=== PATIENT | female | born 1975 | race Two or more races ===

== ENCOUNTER 2017-04-14 19:24 | Emergency (ER) | payer SELFPAY ==
[2017-04-14 20:08] LABS: URINE HCG POC HCG NEGATIVE (Negative)
[2017-04-14] MEDS: KETOROLAC 60 MG/2 ML INJ. IM ×2 (20:42)
[2017-04-14] MEDS: ONDANSETRON ODT 4 MG TAB.RAPDIS. PO ×2 (20:42)
[2017-04-14] MEDS: CYCLOBENZAPRINE 10 MG TABLET. PO ×2 (20:42)
== END 2017-04-14 21:25 | disposition home or self-care (01) ==
LOC: ER 19:24
DX: M43.6 Torticollis (principal); R19.7 Diarrhea, unspecified; R11.2 Nausea with vomiting, unspecified; R51 Headache; F17.210 Nicotine dependence, cigarettes, uncomplicated; Z90.49 Acquired absence of other specified parts of digestive tract
CPT/HCPCS: 81025; 93005; 96372; 99283; J1885; Q0162

== ENCOUNTER 2017-04-23 22:46 | Emergency (ER) | payer SELFPAY | END 2017-04-23 23:27 | disposition home or self-care (01) | LOC: ER 22:46 | DX: O99.350 Diseases of the nervous system complicating pregnancy, unspecified trimester (principal); G43.709 Chronic migraine without aura, not intractable, without status migrainosus; Z90.49 Acquired absence of other specified parts of digestive tract; Z3A.00 Weeks of gestation of pregnancy not specified | CPT/HCPCS: 99283 ==

== ENCOUNTER 2017-05-15 21:20 | Emergency (ER) | payer SELFPAY ==
[2017-05-15] MEDS: HYDROcodone/APAP 5/325MG 1 TAB TABLET PO (21:59)
== END 2017-05-15 22:12 | disposition home or self-care (01) ==
LOC: ER 22:12
DX: O23.591 Infection of other part of genital tract in pregnancy, first trimester (principal); Z3A.08 8 weeks gestation of pregnancy; Z90.49 Acquired absence of other specified parts of digestive tract
CPT/HCPCS: 99283

== ENCOUNTER 2017-05-22 15:22 | Emergency (ER) | payer SELFPAY ==
[2017-05-22] MEDS: ONDANSETRON PF 4 MG/2 ML VIAL. IV (18:16)
[2017-05-22] MEDS: fentaNYL PF VIAL 100 MCG/2 ML VIAL IV ×2 (18:18→18:47)
[2017-05-22] MEDS: LIDOCAINE 1% PF 30 ML VIAL. INJ (18:22)
== END 2017-05-22 19:40 | disposition home or self-care (01) ==
LOC: ER 15:22
DX: O99.89 Other specified diseases and conditions complicating pregnancy, childbirth and the puerperium (principal); N75.0 Cyst of Bartholin's gland; Z3A.10 10 weeks gestation of pregnancy; Z90.49 Acquired absence of other specified parts of digestive tract
CPT/HCPCS: 56420; 96374; 96375; 99284-25; J2405; J3010

== ENCOUNTER 2017-05-27 00:24 | Emergency (ER) | payer SELFPAY | END 2017-05-27 01:11 | disposition home or self-care (01) | LOC: ER 00:24 | DX: Z48.01 Encounter for change or removal of surgical wound dressing (principal); O21.0 Mild hyperemesis gravidarum; Z3A.11 11 weeks gestation of pregnancy | CPT/HCPCS: 99283 ==

== ENCOUNTER 2017-06-22 01:42 | Emergency (ER) | payer SELFPAY ==
[2017-06-22] MEDS ORDERED: IV NORMAL SALINE 1000ML BAG 1,000 ML IV (02:15)
[2017-06-22] MEDS ORDERED: ONDANSETRON PF 4 MG/2 ML VIAL. IV (02:15)
[2017-06-22 02:29] LABS: BILIRUBIN,URINE NEGATIVE (NEG); CLARITY,URINE CLEAR; COLOR,URINE YELLOW; GLUCOSE,URINE NEGATIVE (NEG); NITRITE,URINE NEGATIVE (NEG); PH,URINE 5.5; PROTEIN,URINE NEGATIVE (NEG-TRACE)
[2017-06-22] MEDS: ONDANSETRON ODT 4 MG TAB.RAPDIS. PO (02:39)
[2017-06-22] MEDS: ACETAMINOPHEN 500 MG TABLET PO (02:39)
[2017-06-22 02:43] LABS: AMORPHOUS SEDIMENT,UR PRESENT /HPF; BACTERIA,URINE FEW /HPF (0-FEW); RBC,URINE 0 /HPF (0-2); SQUAMOUS EPITHELIAL CELL,UR MANY /LPF
[2017-06-22] MEDS: CEPHALEXIN 250 MG CAPSULE. PO (03:26)
== END 2017-06-22 03:30 | disposition home or self-care (01) ==
LOC: ER 01:42
DX: O23.42 Unspecified infection of urinary tract in pregnancy, second trimester (principal); O99.342 Other mental disorders complicating pregnancy, second trimester; F41.9 Anxiety disorder, unspecified; Z3A.15 15 weeks gestation of pregnancy; Z90.49 Acquired absence of other specified parts of digestive tract
CPT/HCPCS: 81001; 99284; Q0162

== ENCOUNTER 2017-06-26 12:30 | Emergency (ER) | payer SELFPAY ==
[2017-06-26 13:23] LABS: BILIRUBIN,URINE NEGATIVE (NEG); CLARITY,URINE CLEAR; COLOR,URINE AMBER; GLUCOSE,URINE NEGATIVE (NEG); NITRITE,URINE NEGATIVE (NEG); PROTEIN,URINE NEGATIVE (NEG-TRACE)
[2017-06-26 13:32] LABS: ADD MAN DIFF? NO
[2017-06-26 13:37] LABS: BASO % 0 % (0-3); EOS # 0.1 x10^3/uL (0.0-0.7); EOS % 0 % (0-3); HEMATOCRIT 39.3 % (36.0-47.0); HEMOGLOBIN 13.7 g/dL (12.0-15.5); LYMPH # 2.7 x10^3/uL (1.0-4.8); LYMPH % 23 % (24-48); MEAN CORPUSCULAR HEMOGLOBIN 30 pg (25-35); MEAN CORPUSCULAR HGB CONC 35 g/dL (31-37); MEAN CORPUSCULAR VOLUME 85 fL (79-100); MONO # 0.4 x10^3/uL (0.0-1.1); MONO % 4 % (0-9); NEUT # 8.4 x10^3uL (1.8-7.7); NEUT % 73 % (31-73); PLATELET COUNT 262 x10^3/uL (140-400); RED BLOOD COUNT 4.64 x10^6/uL (3.50-5.40); RED CELL DISTRIBUTION WIDTH 13.6 % (11.5-14.5); WHITE BLOOD COUNT 11.6 x10^3/uL (4.0-11.0)
[2017-06-26 13:42] LABS: BACTERIA,URINE 0 /HPF (0-FEW); RBC,URINE 0 /HPF (0-2); SQUAMOUS EPITHELIAL CELL,UR MANY /LPF
[2017-06-26 13:51] LABS: ANION GAP 14 (6-14); BLOOD UREA NITROGEN 7 mg/dL (7-20); CARBON DIOXIDE 23 mmol/L (21-32); CHLORIDE 100 mmol/L (98-107); CREATININE 0.6 mg/dL (0.6-1.0); GFR 110.7; GLUCOSE 141 mg/dL (70-99); POTASSIUM 3.6 mmol/L (3.5-5.1); SODIUM 137 mmol/L (136-145)
[2017-06-26 13:56] LABS: ALBUMIN 3.3 g/dL (3.4-5.0); ALK PHOS 61 U/L (46-116); ALT (SGPT) 16 U/L (14-59); AST (SGOT) 12 U/L (15-37); DIRECT BILIRUBIN 0.2 mg/dL (0.0-0.2); LIPASE 96 U/L (73-393); TOTAL BILIRUBIN 0.8 mg/dL (0.2-1.0); TOTAL PROTEIN 8.2 g/dL (6.4-8.2)
== END 2017-06-26 15:15 | disposition home or self-care (01) ==
LOC: ER 12:30
DX: O26.891 Other specified pregnancy related conditions, first trimester (principal); R10.32 Left lower quadrant pain; Z3A.13 13 weeks gestation of pregnancy; Z90.49 Acquired absence of other specified parts of digestive tract
CPT/HCPCS: 36415; 76801; 76817; 80048; 80076; 81001; 83690; 84702; 85025; 86901; 87086; 99285-25

== ENCOUNTER 2017-07-08 12:56 | Emergency (ER) | payer SELFPAY ==
[2017-07-08] MEDS: IPRATRPIUM/ALBUTEROL 0.5/2.5MG 3 ML NEBU. NEB (14:56)
[2017-07-08] MEDS: ACETAMINOPHEN 500 MG TABLET PO (15:13)
[2017-07-08 15:24] LABS: BILIRUBIN,URINE NEGATIVE (NEG); CLARITY,URINE CLOUDY; COLOR,URINE YELLOW; GLUCOSE,URINE NEGATIVE (NEG); NITRITE,URINE NEGATIVE (NEG); PROTEIN,URINE NEGATIVE (NEG-TRACE)
[2017-07-08 15:42] LABS: AMORPHOUS SEDIMENT,UR PRESENT /HPF; BACTERIA,URINE 0 /HPF (0-FEW); RBC,URINE 0 /HPF (0-2); SQUAMOUS EPITHELIAL CELL,UR MOD /LPF; WBC,URINE 0 /HPF (0-4)
== END 2017-07-08 16:06 | disposition home or self-care (01) ==
LOC: ER 12:56
DX: O26.892 Other specified pregnancy related conditions, second trimester (principal); O24.419 Gestational diabetes mellitus in pregnancy, unspecified control; R10.11 Right upper quadrant pain; R09.81 Nasal congestion; R05 Cough; J01.20 Acute ethmoidal sinusitis, unspecified; Z3A.15 15 weeks gestation of pregnancy; Z90.49 Acquired absence of other specified parts of digestive tract
CPT/HCPCS: 76705; 76801; 76817; 81001; 94640; 99285-25; J7620

== ENCOUNTER 2017-07-11 19:03 | Emergency (ER) | payer SELFPAY | END 2017-07-11 20:21 | disposition home or self-care (01) | LOC: ER 19:03 | DX: O26.899 Other specified pregnancy related conditions, unspecified trimester (principal); O24.410 Gestational diabetes mellitus in pregnancy, diet controlled; H66.92 Otitis media, unspecified, left ear; Z90.49 Acquired absence of other specified parts of digestive tract; Z3A.00 Weeks of gestation of pregnancy not specified | CPT/HCPCS: 99283 ==

== ENCOUNTER 2017-11-10 12:50 | Observation (INO) | payer SELFPAY ==
[2017-07-11 19:05] VITALS: BP 135/72
[~2017-11-10 12:50] MED LIST: AMOX1TAB61 PO; AMOX500C PO; CEPH-264 PO; CEPH500T PO; CLIN150C14 PO; CYCL10TA2 PO; DOXY100T PO; HYDR-2758 PO; HYDR-963 PO; HYDR-971 PO; METF10003 PO; NAPR-683 PO; ONDA4TAB10 SL; PHEN37.5 PO; PROM25TA10 PO; SUMA25TA3 PO; VENTOLIN HFA18 GM INH
[2017-11-10 14:05] LABS: BARBITURATES NEG (NEG); BENZODIAZEPINES NEG (NEG); CANNABINOIDS NEG (NEG); COCAINE NEG (NEG); METHADONE NEG (NEG); OPIATES NEG (NEG); PHENCYCLIDINE NEG (NEG)
[2017-11-10 14:06] LABS: BILIRUBIN,URINE MODERATE (NEG); CLARITY,URINE HAZY; COLOR,URINE AMBER
[2017-11-10 14:07] LABS: AMPHETAMINE/METHAMPHETAMINE NEG (NEG); NITRITE,URINE POSITIVE (NEG); PROTEIN,URINE 30 mg/dL (NEG-TRACE)
[2017-11-10 14:10] LABS: AMORPHOUS SEDIMENT,UR PRESENT /HPF; BACTERIA,URINE MANY /HPF (0-FEW); RBC,URINE 0 /HPF (0-2); SQUAMOUS EPITHELIAL CELL,UR MANY /LPF
[2017-11-10] MEDS ORDERED: ACETAMINOPHEN 500 MG TABLET PO ONE (15:30)
== END 2017-11-10 15:30 | disposition home or self-care (01) ==
LOC: 3 SO LND 12:50
PROVIDERS: ADMIT Obstetrics & Gynecology; ATTEND Obstetrics & Gynecology
DX: O26.893 Other specified pregnancy related conditions, third trimester (principal); R10.9 Unspecified abdominal pain; Z3A.34 34 weeks gestation of pregnancy; Z79.899 Other long term (current) drug therapy
CPT/HCPCS: 80307; 81001; 87086; G0378; G0379; G0479

== ENCOUNTER 2017-12-08 18:09 | Observation (INO) | payer SELFPAY ==
[2017-07-11 19:05] VITALS: BP 135/72
[~2017-12-08 18:09] MED LIST changes: -METF10003 PO; +METF10007 PO
[2017-12-08] MEDS ORDERED: IV RINGERS,LACTATED 1000ML 1,000 ML IV SCH (18:40)
[2017-12-08 19:07] LABS: BILIRUBIN,URINE NEGATIVE (NEG); CLARITY,URINE CLEAR; COLOR,URINE YELLOW; NITRITE,URINE NEGATIVE (NEG); PROTEIN,URINE NEGATIVE (NEG-TRACE)
[2017-12-08 19:14] LABS: BACTERIA,URINE MANY /HPF (0-FEW); BARBITURATES NEG (NEG); BENZODIAZEPINES NEG (NEG); CANNABINOIDS NEG (NEG); COCAINE NEG (NEG); METHADONE NEG (NEG); OPIATES NEG (NEG); PHENCYCLIDINE NEG (NEG); RBC,URINE 0 /HPF (0-2); SQUAMOUS EPITHELIAL CELL,UR MANY /LPF
[2017-12-08 19:22] LABS: AMPHETAMINE/METHAMPHETAMINE NEG (NEG)
--- NOTE | 2017-12-08 21:03 | RAD ---
BIOPHYS PROFILE W/O NON STRESS History: Decreased movement Findings: Multiple sonographic images from a biophysical profile are submitted. There was 10/19 scoring for the biophysical profile. Estimated LOGAN is 12.4 cm. There is cephalic presentation of the intrauterine fetus. Foci of hypoechogenicity of the placenta are most likely due to placental lakes. Biometry data are as follows: Biparietal diameter 9.29 cm corresponds with 37 weeks 5 days Head circumference 34.48 cm corresponds with 39 weeks 6 days Abdominal circumference 35.59 cm corresponds with 39 weeks 3 days Femur length 7.43 cm corresponds with 38 weeks 0 days Adjusted ultrasound age is 38 weeks 5 days with estimated delivery date by ultrasound of 12/17/2017. LMP age is 37 weeks 4 days with estimated delivery date of 12/25/2017. Estimated weight 3657 g +/- 541 g. heart rate was 141 bpm. Impression: 1. There is 10/19 scoring for the biophysical profile Electronically signed by: Herman Quick MD (12/08/2017 8:59 PM) [facility]
== END 2017-12-08 21:06 | disposition home or self-care (01) ==
LOC: 3 SO LND 18:09
PROVIDERS: ADMIT Obstetrics & Gynecology; ATTEND Obstetrics & Gynecology
DX: O36.8130 Decreased fetal movements, third trimester, not applicable or unspecified (principal); Z3A.38 38 weeks gestation of pregnancy; Z79.899 Other long term (current) drug therapy
CPT/HCPCS: 76819; 80307; 81001; 87086; G0378; G0379; G0479

== ENCOUNTER 2017-12-31 01:39 | Inpatient (IN) | payer SELFPAY ==
[~2017-12-31] VITALS: Ht 162.6 cm; Wt 114.3 kg
[2017-12-31 01:54] VITALS: BP 143/81
[2017-12-31] MEDS ORDERED: TERBUTALINE 1 MG/ML VIAL. SQ PRN (02:15)
[2017-12-31] MEDS ORDERED: 0.9 % SODIUM CHLORIDE 10 ML DISP.SYRIN. IV PRN ×2 (02:15→12:00)
[2017-12-31] MEDS ORDERED: IV RINGERS,LACTATED 1000ML 1,000 ML IV PRN (02:15)
[2017-12-31] MEDS ORDERED: ONDANSETRON PF 4 MG/2 ML VIAL. IV PRN (02:15)
[2017-12-31] MEDS ORDERED: NALBUPHINE 10 MG/ML AMPUL. IV PRN (02:15)
[2017-12-31] MEDS ORDERED: IBUPROFEN 400 MG TABLET. PO PRN (02:15)
[2017-12-31] MEDS ORDERED: LIDOCAINE 1% PF 30 ML VIAL. INJ PRN (02:15)
[2017-12-31] MEDS ORDERED: OXYTOCIN 30 UNIT/500 ML PREMIX 500 ML IV PRN ×2 (02:15→12:00)
[2017-12-31] MEDS ORDERED: fentaNYL PF VIAL 100 MCG/2 ML VIAL IV PRN (02:15)
[2017-12-31 02:22] LABS: BILIRUBIN,URINE NEGATIVE (NEG); CLARITY,URINE CLEAR; COLOR,URINE YELLOW; NITRITE,URINE NEGATIVE (NEG); PROTEIN,URINE NEGATIVE (NEG-TRACE)
[2017-12-31] MEDS: IV RINGERS,LACTATED 1000ML 1,000 ML IV SCH ×3 (02:24→18:15)
[2017-12-31 02:29] LABS: BARBITURATES NEG (NEG); BENZODIAZEPINES NEG (NEG); CANNABINOIDS NEG (NEG); COCAINE NEG (NEG); METHADONE NEG (NEG); OPIATES NEG (NEG); PHENCYCLIDINE NEG (NEG)
[2017-12-31 02:30] LABS: AMPHETAMINE/METHAMPHETAMINE NEG (NEG)
[2017-12-31] MEDS ORDERED: PENICILLIN G K 5,000,000 UNIT in IV DEXTROSE 5% 100ML 100 ML IV ONE (02:30)
[2017-12-31] MEDS ORDERED: miSOPROStol 200MCG TAB 200 MCG TABLET PR ONE (02:30)
[2017-12-31 02:32] LABS: BACTERIA,URINE MANY /HPF (0-FEW); RBC,URINE 0 /HPF (0-2); SQUAMOUS EPITHELIAL CELL,UR MANY /LPF
[2017-12-31 02:39] LABS: BASO % 0 % (0-3); EOS # 0.1 x10^3/uL (0.0-0.7); EOS % 1 % (0-3); HEMATOCRIT 35.1 % (36.0-47.0); HEMOGLOBIN 12.4 g/dL (12.0-15.5); LYMPH % 23 % (24-48); MEAN CORPUSCULAR HEMOGLOBIN 31 pg (25-35); MEAN CORPUSCULAR HGB CONC 35 g/dL (31-37); MEAN CORPUSCULAR VOLUME 87 fL (79-100); MONO # 0.8 x10^3/uL (0.0-1.1); MONO % 6 % (0-9); NEUT # 8.9 x10^3uL (1.8-7.7); NEUT % 69 % (31-73); PLATELET COUNT 231 x10^3/uL (140-400); RED BLOOD COUNT 4.05 x10^6/uL (3.50-5.40); RED CELL DISTRIBUTION WIDTH 13.3 % (11.5-14.5); WHITE BLOOD COUNT 12.9 x10^3/uL (4.0-11.0)
[2017-12-31] MEDS ORDERED: miSOPROStol 200MCG TAB 200 MCG TABLET PR PRN (05:15)
[2017-12-31] MEDS: PENICILLIN G K 2,500,000 UNIT in IV DEXTROSE 5% 50 ML IV SCH ×2 (06:48→10:24)
[2017-12-31] MEDS ORDERED: OXYTOCIN 30 UNIT/500 ML PREMIX 500 ML IV ONE (08:15)
--- NOTE | 2017-12-31 10:59 | PDOC1 ---
OB - History Hx of Present Care: Limited Care Ultrasounds: Normal mid trimester US Obstetrical Complications: None Medical Complications: None Past Family/Social History * Past Medical, Surgical, Family and Obstetric Histories reviewed from chart. Rubella: Immune RPR/VDRL: Negative GBS Status: Positive HBsAG: Negative OB - Chief Complaint & HPI Date of Admission: Date of Admission: Dec 31, 2017 at 01:39 Chief Complaint/History : 7 Para: 7; twins EGA: 40 Reason for admission: active labor Admission Nurse Assessment Rev: Yes OB - Admission Exam Physical Exam Vitals: VS - Last 72 Hours, by Label Date Time Temp Pulse Resp B/P (MAP) Pulse Ox O2 Delivery O2 Flow Rate FiO2 12/31/17 01:54 98.1 66 20 143/81 (101) Room Air 98.1 HEENT: Normal Heart: Regular Rate Lungs: Clear Abdomen: Gravid, Non tender, Soft Extremities: Edema Reflexes: Normal Cervical Dilatation: 4cm Effacement: 75% Station: -3 Membranes: Intact Heart Rate: Normal Accelerations: Accelerations Present Decelerations: No decelerations Contractions on Admission: 6-10 Minutes Apart Intensity: Moderate Text A: 40 wks IUP GBS positive Active labor P: Admit for labor management. ARNOLD MOORE Jr, MD Dec 31, 2017 10:59
--- NOTE | 2017-12-31 11:57 | PDOC ---
VAGINAL DELIVERY DATE DATE: 12/31/17 TIME: 11:56 : 7 Para: Other (8; twins) EGA: 40 VAGINAL DELIVERY: VTX VACCUM ASSISTED: No PLACENTA: Spontaneous 8/9 SEX: Male WEIGHT Weight [ 4750 gm] Nuchal Cord: No Amniotic Fluid: Thin Meconium PAIN: Natural EPISIOTOMY: No EXTENSION: No EBL 300 ml COMPLICATIONS none CONDITION pt. stable Signs of Intrauterine Infectio: None Shoulder Dystocia: No ARNOLD MOORE Jr, MD Dec 31, 2017 11:57
[2017-12-31] MEDS ORDERED: HYDROCORTISONE 1% TOPICAL OINTMENT 30GM TUBE. TP PRN (12:00)
[2017-12-31] MEDS ORDERED: ZOLPIDEM 5 MG TABLET. PO PRN (12:00)
[2017-12-31] MEDS ORDERED: MMR per PROTOCOL. MC PRN (12:00)
[2017-12-31] MEDS ORDERED: MAG HYDROX/ALUMINUM HYD/SIMETH 30 ML ORAL.SUSP PO PRN (12:00)
[2017-12-31] MEDS ORDERED: diphenhydrAMINE HCL 25 MG CAPSULE PO PRN (12:00)
[2017-12-31] MEDS ORDERED: oxyCODONE/APAP 5/325 1 TAB TABLET PO PRN (12:00)
[2017-12-31] MEDS ORDERED: SIMETHICONE 80 MG TAB.CHEW PO PRN (12:00)
[2017-12-31] MEDS ORDERED: BENZOCAINE 20% TOPICAL AEROSOL SPRAY 57GM CAN. TP PRN (12:00)
[2017-12-31] MEDS ORDERED: MAGNESIUM HYDROXIDE 2,400 MG/30 ML ORAL.SUSP. PO PRN (12:00)
[2017-12-31] MEDS ORDERED: PHENYLEPH/MINERAL OIL/PETROLAT RECTAL OINTMENT 28GM TUBE. RC PRN (12:00)
[2017-12-31 16:00] VITALS: BP 118/60
[2017-12-31] MEDS ORDERED: FERROUS SULFATE 325 MG TABLET. PO SCH (17:00)
[2017-12-31 17:10] VITALS: BP 113/60
[2017-12-31] MEDS: DOCUSATE SODIUM 100 MG CAPSULE. PO PRN (18:23)
[2017-12-31] MEDS: ACETAMINOPHEN 325 MG TABLET. PO PRN (18:23)
[2017-12-31] MEDS ORDERED: DIPHTH,PERTUSS(ACELL),TET TOX 0.5 ML DISP.SYRIN. VAX IM ONE (21:00)
[2017-12-31 23:18] VITALS: BP 108/58
[2018-01-01] MEDS: IV RINGERS,LACTATED 1000ML 1,000 ML IV SCH ×3 (02:15→18:15)
[2018-01-01 04:15] LABS: BASO % 0 % (0-3); EOS # 0.1 x10^3/uL (0.0-0.7); EOS % 1 % (0-3); HEMATOCRIT 35.1 % (36.0-47.0); HEMOGLOBIN 12.2 g/dL (12.0-15.5); LYMPH # 3.5 x10^3/uL (1.0-4.8); LYMPH % 30 % (24-48); MEAN CORPUSCULAR HEMOGLOBIN 30 pg (25-35); MEAN CORPUSCULAR HGB CONC 35 g/dL (31-37); MEAN CORPUSCULAR VOLUME 88 fL (79-100); MONO # 0.8 x10^3/uL (0.0-1.1); MONO % 7 % (0-9); NEUT # 7.2 x10^3uL (1.8-7.7); NEUT % 62 % (31-73); PLATELET COUNT 238 x10^3/uL (140-400); RED CELL DISTRIBUTION WIDTH 13.4 % (11.5-14.5); WHITE BLOOD COUNT 11.7 x10^3/uL (4.0-11.0)
[2018-01-01] MEDS: IBUPROFEN 400 MG TABLET. PO PRN ×2 (06:15→18:42)
[2018-01-01 06:22] VITALS: BP 114/60
[2018-01-01] MEDS: DOCUSATE SODIUM 100 MG CAPSULE. PO PRN (08:02)
[2018-01-01] MEDS: ACETAMINOPHEN 325 MG TABLET. PO PRN (08:02)
--- NOTE | 2018-01-01 11:15 | PDOC ---
OB Progress Note Date of Service 01/01/18 Time of Evaluation 1115 Notes Pt. feeling well. No complaints. Lab Laboratory Tests Test 12/31/17 01:55 12/31/17 02:10 01/01/18 03:30 Urine Collection Type Unknown Urine Color Yellow Urine Clarity Clear Urine pH 6.0 Urine Specific Ullin >=1.030 Urine Protein Negative mg/dL (NEG-TRACE) Urine Glucose (UA) Negative mg/dL (NEG) Urine Ketones (Stick) Negative mg/dL (NEG) Urine Blood Negative (NEG) Urine Nitrite Negative (NEG) Urine Bilirubin Negative (NEG) Urine Urobilinogen Dipstick 1.0 mg/dL (0.2 mg/dL) Urine Leukocyte Esterase Moderate (NEG) Urine RBC 0 /HPF (0-2) Urine WBC 11-20 /HPF (0-4) Urine Squamous Epithelial Cells Many /LPF Urine Bacteria Many /HPF (0-FEW) Urine Mucus Mod /LPF Urine Opiates Screen Neg (NEG) Urine Methadone Screen Neg (NEG) Urine Barbiturates Neg (NEG) Urine Phencyclidine Screen Neg (NEG) Urine Amphetamine/Methamphetamine Neg (NEG) Urine Benzodiazepines Screen Neg (NEG) Urine Cocaine Screen Neg (NEG) Urine Cannabinoids Screen Neg (NEG) Urine Ethyl Alcohol Neg (NEG) White Blood Count 12.9 x10^3/uL (4.0-11.0) 11.7 x10^3/uL (4.0-11.0) Red Blood Count 4.05 x10^6/uL (3.50-5.40) 4.00 x10^6/uL (3.50-5.40) Hemoglobin 12.4 g/dL (12.0-15.5) 12.2 g/dL (12.0-15.5) Hematocrit 35.1 % (36.0-47.0) 35.1 % (36.0-47.0) Mean Corpuscular Volume 87 fL (79-100) 88 fL (79-100) Mean Corpuscular Hemoglobin 31 pg (25-35) 30 pg (25-35) Mean Corpuscular Hemoglobin Concent 35 g/dL (31-37) 35 g/dL (31-37) Red Cell Distribution Width 13.3 % (11.5-14.5) 13.4 % (11.5-14.5) Platelet Count 231 x10^3/uL (140-400) 238 x10^3/uL (140-400) Neutrophils (%) (Auto) 69 % (31-73) 62 % (31-73) Lymphocytes (%) (Auto) 23 % (24-48) 30 % (24-48) Monocytes (%) (Auto) 6 % (0-9) 7 % (0-9) Eosinophils (%) (Auto) 1 % (0-3) 1 % (0-3) Basophils (%) (Auto) 0 % (0-3) 0 % (0-3) Neutrophils # (Auto) 8.9 x10^3uL (1.8-7.7) 7.2 x10^3uL (1.8-7.7) Lymphocytes # (Auto) 3.0 x10^3/uL (1.0-4.8) 3.5 x10^3/uL (1.0-4.8) Monocytes # (Auto) 0.8 x10^3/uL (0.0-1.1) 0.8 x10^3/uL (0.0-1.1) Eosinophils # (Auto) 0.1 x10^3/uL (0.0-0.7) 0.1 x10^3/uL (0.0-0.7) Basophils # (Auto) 0.0 x10^3/uL (0.0-0.2) 0.0 x10^3/uL (0.0-0.2) Glucose Level 122 mg/dL (70-99) Laboratory Tests Test 01/01/18 03:30 White Blood Count 11.7 x10^3/uL (4.0-11.0) Red Blood Count 4.00 x10^6/uL (3.50-5.40) Hemoglobin 12.2 g/dL (12.0-15.5) Hematocrit 35.1 % (36.0-47.0) Mean Corpuscular Volume 88 fL (79-100) Mean Corpuscular Hemoglobin 30 pg (25-35) Mean Corpuscular Hemoglobin Concent 35 g/dL (31-37) Red Cell Distribution Width 13.4 % (11.5-14.5) Platelet Count 238 x10^3/uL (140-400) Neutrophils (%) (Auto) 62 % (31-73) Lymphocytes (%) (Auto) 30 % (24-48) Monocytes (%) (Auto) 7 % (0-9) Eosinophils (%) (Auto) 1 % (0-3) Basophils (%) (Auto) 0 % (0-3) Neutrophils # (Auto) 7.2 x10^3uL (1.8-7.7) Lymphocytes # (Auto) 3.5 x10^3/uL (1.0-4.8) Monocytes # (Auto) 0.8 x10^3/uL (0.0-1.1) Eosinophils # (Auto) 0.1 x10^3/uL (0.0-0.7) Basophils # (Auto) 0.0 x10^3/uL (0.0-0.2) Medications Current Medications Ringer's Solution 1,000 ml @ 125 mls/hr Q8H PRN IV hydration; Start 12/31/17 at 02:15; Status Cancel Sodium Chloride (Normal Saline Flush) 3 ml QSHIFT PRN IV AFTER MEDS AND BLOOD DRAWS; Start 12/31/17 at 02:15 Ringer's Solution 1,000 ml @ 125 mls/hr Q8H IV Last administered on at 08:26; Start 12/31/17 at 02:15 Nalbuphine HCl (Nubain) 10 mg PRN Q1HR PRN IV Severe labor pain; Start at 02:15 Fentanyl Citrate (Fentanyl 2ml Vial) 100 mcg PRN Q30MIN PRN IV Severe pain Last administered on 12/31/17at 11:30; Start 12/31/17 at 02:15 Ondansetron HCl (Zofran) 8 mg PRN Q6HRS PRN IV NAUSEA/VOMITING; Start at 02:15 Terbutaline Sulfate (Brethine) 0.25 mg 1X PRN PRN SQ SEE COMMENTS; Start 12/31 at 02:15; Stop 01/01/18 at 02:14; Status DC Lidocaine HCl (Xylocaine 1% Pf 30ml Vial) 30 ml 1X PRN PRN INJ SEE COMMENTS; Start 12/31/17 at 02:15; Stop 01/02/18 at 02:14 Oxytocin/Sodium Chloride 500 ml @ 0 mls/hr CONT PRN PRN IV Post delivery bleeding; Start 12/31/17 at 02:15 Ibuprofen (Motrin) 800 mg PRN Q6HRS PRN PO PAIN Last administered on at 14:54; Start 12/31/17 at 02:15; Stop 12/31/17 at 18:56; Status DC Penicillin G Potassium [id number] unit/Dextrose 100 ml @ 100 mls/hr 1X ONCE IV Last administered on 12/31/17at 02:25; Start 12/31/17 at 02:30; Stop 12/31/17 at 03:29; Status DC Penicillin G Potassium [id number] unit/Dextrose 50 ml @ 100 mls/hr Q4H IV Last administered on 12/31/17at 10:24; Start 12/31/17 at 06:30; Stop 01/01/18 at 04 :56; Status DC Misoprostol (Cytotec 200mcg Tab) 800 mcg 1X ONCE ME ; Start 12/31/17 at 02:30 ; Stop 12/31/17 at 02:31; Status Cancel Misoprostol (Cytotec 200mcg Tab) 800 mcg 1X PRN PRN ME post delivery bleeding; Start 12/31/17 at 05:15 Oxytocin/Sodium Chloride 500 ml @ 0 mls/hr 1X ONCE IV Last administered on at 08:26; Start 12/31/17 at 08:15; Stop 12/31/17 at 08:16; Status DC Sodium Chloride (Normal Saline Flush) 10 ml QSHIFT PRN IV AFTER MEDS AND BLOOD DRAWS; Start 12/31/17 at 12:00 Oxytocin/Sodium Chloride 500 ml @ 62.5 mls/hr CONT PRN IV SEE I/O RECORD; Start 12/31/17 at 12:00; Stop 12/31/17 at 19:59; Status DC Acetaminophen (Tylenol) 650 mg PRN Q6HRS PRN PO MILD PAIN / TEMP Last administered on 01/01/18at 08:02; Start 12/31/17 at 12:00 Ibuprofen (Motrin) 800 mg PRN Q8HRS PRN PO INFLAMMATION/PAIN PREVENTION Last administered on 01/01/18at 06:15; Start 12/31/17 at 12:00 Docusate Sodium (Colace) 100 mg PRN BID PRN PO CONSTIPATION 1ST CHOICE Last administered on 01/01/18at 08:02; Start 12/31/17 at 12:00 Magnesium Hydroxide (Milk Of Magnesia) 2,400 mg PRN DAILY PRN PO CONSTIPATION 2ND CHOICE; Start 12/31/17 at 12:00 Al Hydroxide/Mg Hydroxide (Mylanta Plus Xs) 30 ml PRN Q4HRS PRN PO HEARTBURN / GAS; Start 12/31/17 at 12:00 Simethicone (Gas-X) 80 mg PRN AFTMEALHC PRN PO GAS / BLOATING; Start 12/31/17 at 12:00 Diphenhydramine HCl (Benadryl) 25 mg PRN Q6HRS PRN PO ITCHING; Start 12/31/17 at 12:00 Benzocaine (Americaine) 1 spray PRN QID PRN TP TOPICAL PAIN Last administered on 12/31/17at 14:55; Start 12/31/17 at 12:00 Phenyleph/Shark Oil/Min Oil/Petrol (Preparation H) 1 camron PRN QID PRN RC RECTAL PAIN; Start 12/31/17 at 12:00 Hydrocortisone (Cortaid) 1 camron PRN QID PRN TP PERINEAL PAIN; Start 12/31/17 at 12:00 Ferrous Sulfate (Feosol) 325 mg BIDWMEALS PO Last administered on 12/31/17at 18 :23; Start 12/31/17 at 17:00; Stop 01/01/18 at 05:02; Status DC Zolpidem Tartrate (Ambien) 5 mg PRN QHS PRN PO INSOMNIA, MAY REPEAT X1; Start 12/31/17 at 12:00 Info (Do NOT chart on this placeholder) 1 ea 1X PRN PRN MC SEE COMMENTS; Start 12/31/17 at 12:00; Status Cancel Info (Do NOT chart on this placeholder) 1 ea 1X PRN PRN MC SEE COMMENTS; Start 12/31/17 at 12:00 Oxycodone/ Acetaminophen (Percocet 5/325) 2 tab PRN Q4HRS PRN PO MODERATE PAIN , SEVERE PAIN; Start 12/31/17 at 12:00 Influenza Virus Vaccine (Afluria Trivalent 7335-1227 Syringe) 0.5 ml ONCE ONCE VAX IM ; Start 12/31/17 at 21:00; Stop 12/31/17 at 21:01; Status DC Diphtheria/ Tetanus/Acell Pertussis (Boostrix) 0.5 ml ONCE ONCE VAX IM ; Start 12/31/17 at 21:00; Stop 12/31/17 at 21:01; Status DC Active Scripts Active Keflex (Cephalexin) 500 Mg Capsule 1 Cap PO BID Augmentin 875-125 Tablet (Amoxicillin/Potassium Clav) 1 Each Tablet 1 Tab PO BID Ventolin Hfa Inhaler (Albuterol Sulfate) 18 Gm Hfa.aer.ad 2 Puff INH Q4HRS Keflex (Cephalexin) 500 Mg Capsule 1 Cap PO QID Zofran Odt (Ondansetron) 4 Mg Tab.rapdis 1 Tab SL Q4HRS PRN [place] 10-325 Tablet (Acetaminophen/Hydrocodone Bitart) 1 Each Tablet 1 Tab PO Q8HRS PRN MDD 6 Augmentin 875-125 Tablet (Amoxicillin/Potassium Clav) 1 Each Tablet 1 Tab PO BID [place] 5-325 Tablet (Acetaminophen/Hydrocodone Bitart) 1 Each Tablet 1 Tab PO Q6- 8HRS PRN Cephalexin 500 Mg Tablet 1 Tab PO QID Promethazine Hcl 25 Mg Tablet 1 Tab PO PRN Q6HRS Zofran Odt (Ondansetron) 4 Mg Tab.rapdis 1 Tab SL Q6HRS PRN Naprosyn (Naproxen) 500 Mg Tablet 500 Mg PO BID Cyclobenzaprine Hcl 10 Mg Tablet 10 Mg PO TID PRN [place] 10-325 Tablet (Acetaminophen/Hydrocodone Bitart) 1 Each Tablet 1 Tab PO Q6HRS PRN Clindamycin Hcl 150 Mg Capsule 450 Mg PO TID Amoxicillin 500 Mg Capsule 1 Cap PO QID Keflex (Cephalexin) 500 Mg Capsule 1 Cap PO BID Imitrex (Sumatriptan Succinate) 25 Mg Tablet 25 Mg PO PRN Q2HR PRN Hydrocodone-Apap 5-325 (Hydrocodone Bit/Acetaminophen) 1 Each Tablet 1 Tab PO PRN Q6HRS PRN Reported Phentermine Hcl 37.5 Mg Tablet 37.5 Mg PO DAILY Metformin Hcl 1,000 Mg Tablet 1,000 Mg PO DAILYWBKFT Exam Abd: soft, non tender, fundus firm Assessment PPD#1 s/p Plan of Care: Continue current Tx, Mgmt ARNOLD MOORE Jr, MD Jan 01, 2018 11:15
[2018-01-01 15:35] VITALS: BP 121/70
[2018-01-01 22:08] VITALS: BP 89/56
[2018-01-02 05:30] VITALS: BP 136/72
[2018-01-02] MEDS: ACETAMINOPHEN 325 MG TABLET. PO PRN (06:01)
[2018-01-02] MEDS: DOCUSATE SODIUM 100 MG CAPSULE. PO PRN (09:50)
[2018-01-02 17:10] VITALS: BP 131/75
--- NOTE | 2018-01-02 17:32 | DISCH ---
DISCHARGE INSTRUCTIONS Condition on Discharge Condition on Discharge: Stable Activity After Discharge Activity Instructions for Disc: Activity as tolerated Lifting Instructions after Dis: No heavy lifting Driving Instructions after Dis: Do not drive today Diet after Discharge Diet after Discharge: Regular Contacting the [facility] after DC Call your doctor for: Concerns you may have Follow-Up Follow up with: Dr. Roberts in 6 wks. ARNOLD ROBERTS Jr, MD Jan 02, 2018 17:32
--- NOTE | 2018-01-02 17:32 | PDOC3 ---
OB DISCHARGE SUMMARY DATE OF ADMISSION: 12/31/17 DATE OF DISCHARGE: 01/02/18 REASON FOR ADMISSION: Onset of labor INTRAPARTUM PROCEDURES: Spontanous Vag Deliv DISCHARGE DIAGNOSIS: Term Delivered DISCHARGE INFORMATION: Activity (ad pat), Diet (regular), Instructions (pelvic rest x 6 wks) HOSPITAL COURSE Term gestation delivered vaginally without complications. ARNOLD MOORE Jr, MD Jan 02, 2018 17:32
[2018-01-02] MEDS ORDERED: NAPR-683 PO (17:34)
== END 2018-01-02 18:10 | disposition home or self-care (01) | DRG 807 ==
LOC: OBSVTOIN 01:39 → 3 SO LND 01:39 → 3 NORTH 17:54
PROVIDERS: ADMIT Obstetrics & Gynecology; ATTEND Obstetrics & Gynecology
PROC: 10E0XZZ Delivery of Products of Conception, External Approach (ICD-10-PCS; principal; 2017-12-31)
PROC: 10907ZC Drainage of Amniotic Fluid, Therapeutic from Products of Conception, Via Natural or Artificial Opening (ICD-10-PCS; 2017-12-31)
DX: O99.824 Streptococcus B carrier state complicating childbirth (principal); Z37.0 Single live birth; O77.0 Labor and delivery complicated by meconium in amniotic fluid; O24.429 Gestational diabetes mellitus in childbirth, unspecified control; Z3A.40 40 weeks gestation of pregnancy
CPT/HCPCS: 36415; 80307; 81001; 82947; 85025; 86850; 86900; 86901; 87086; 90471; 90715; 90756; J2540; J2590; J3010; J7120; G0479; Q2035

== ENCOUNTER 2018-08-22 22:15 | Emergency (ER) | payer SELFPAY ==
[~2018-08-22] VITALS: Ht 162.6 cm; Wt 114.3 kg
[~2018-08-22 22:15] MED LIST changes: -HYDR-2758 PO; +HYDR-2761 PO; +HYDR-3135 PO; +HYDR-3164 PO; -HYDR-963 PO; -HYDR-971 PO
[2018-08-22 22:40] VITALS: BP 142/63
[2018-08-22] MEDS ORDERED: predniSONE 10 MG TABLET PO ONE (23:00)
[2018-08-22] MEDS ORDERED: HYDROcodone/APAP 5/325MG 1 TAB TABLET PO ONE (23:00)
[2018-08-22] MEDS ORDERED: CYCLOBENZAPRINE 10 MG TABLET. PO ONE (23:00)
[2018-08-22] MEDS ORDERED: NAPROXEN 500 MG TABLET PO ONE (23:00)
[2018-08-22] MEDS ORDERED: DICL50TA4 PO (23:29)
[2018-08-22] MEDS ORDERED: METH4TAB2 PO (23:29)
[2018-08-22] MEDS ORDERED: CYCL10TA2 PO (23:29)
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
== END 2018-08-22 23:38 | disposition home or self-care (01) ==
LOC: ER 22:15
DX: M54.41 Lumbago with sciatica, right side (principal); G89.29 Other chronic pain; Z90.89 Acquired absence of other organs; Z90.49 Acquired absence of other specified parts of digestive tract
CPT/HCPCS: 99284; J7512

== ENCOUNTER 2018-10-18 19:16 | Emergency (ER) | payer SELFPAY ==
[~2018-10-18] VITALS: Ht 160 cm; Wt 106.6 kg
[~2018-10-18 19:16] MED LIST changes: +DICL50TA4 PO; +METH4TAB2 PO
[2018-10-18 19:36] VITALS: BP 125/84
[2018-10-18] MEDS ORDERED: ORPHENADRINE CITRATE 60 MG/2 ML VIAL. IM ONE (20:15)
[2018-10-18] MEDS ORDERED: ORPH100T PO (20:22)
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
== END 2018-10-18 20:32 | disposition home or self-care (01) ==
LOC: ER 19:16
DX: M54.41 Lumbago with sciatica, right side (principal); Z90.89 Acquired absence of other organs; Z90.49 Acquired absence of other specified parts of digestive tract
CPT/HCPCS: 81025; 96372; 99283; J2360

== ENCOUNTER 2019-09-18 19:27 | Emergency (ER) | payer SELFPAY ==
[~2019-09-18] VITALS: Ht 165.1 cm; Wt 106.0 kg
[~2019-09-18 19:27] MED LIST changes: +ORPH100T PO
[2019-09-18 20:20] LABS: BILIRUBIN,URINE NEGATIVE (NEG); CLARITY,URINE CLEAR; COLOR,URINE YELLOW; NITRITE,URINE NEGATIVE (NEG); PH,URINE 5.5 (<5.0-8.0); PROTEIN,URINE NEGATIVE (NEG-TRACE)
--- NOTE | 2019-09-18 20:27 | PHYS DOC ---
Past Medical History Past Medical History: Other Additional Past Medical Histor: gestational diabetes Past Surgical History: Appendectomy, Cholecystectomy Smoking Status: Never Smoker Alcohol Use: None Drug Use: None General Adult EDM: Chief Complaint: ABDOMINAL PAIN IN HPI: HPI: Patient is a 44 year old female presenting to the ED with a chief complaint of pelvic pain. Patient states the pain is been present for the last 2 weeks and is present in her left side. Patient states that recently she found out that she was . Patient is a G8, P8 as she has 1 set of twins. Patient states that she has not yet seen an COPIER OPERATOR. Patient denies fever, chills, nausea, vomiting, chest pain, shortness of breath. Review of Systems: Review of Systems: Constitutional: Denies fever or chills. [] Eyes: Denies change in visual acuity. [] HENT: Denies nasal congestion or sore throat. [] Respiratory: Denies cough or shortness of breath. [] Cardiovascular: Denies chest pain or edema. [] GI: Complains of pelvic pain [] : Denies dysuria. [] Neurologic: Denies headache, focal weakness or sensory changes. [] Heart Score: Risk Factors: Risk Factors: DM, Current or recent (<one month) smoker, HTN, HLP, family history of CAD, obesity. Risk Scores: Score 0 - 3: 2.5% MACE over next 6 weeks - Discharge Home Score 4 - 6: 20.3% MACE over next 6 weeks - Admit for Clinical Observation Score 7 - 10: 72.7% MACE over next 6 weeks - Early Invasive Strategies Allergies: Allergies: Allergies Coded Allergies Type Severity Reaction Last Updated Verified No Known Drug Allergies 02/09/14 No Physical Exam: PE: Constitutional: Well developed, well nourished, no acute distress, non-toxic appearance. [] HENT: Normocephalic, atraumatic Eyes: EOMI Neck: Normal range of motion, Supple Cardiovascular:Heart rate regular rhythm Lungs & Thorax: Bilateral breath sounds clear to auscultation [] Abdomen: Left pelvic tenderness Extremities: No tenderness, ROM intact Neurologic: Alert and oriented X 3 Current Patient Data: Vital Signs: Vital Signs Date Time Temp Pulse Resp B/P (MAP) Pulse Ox O2 Delivery O2 Flow Rate FiO2 09/18/19 20:08 98.5 60 17 117/57 (77) 100 Room Air 98.5 EKG: EKG: [] Radiology/Procedures: Radiology/Procedures: [] Impression: US PELVIS Findings: Multiple transvaginal sonographic images of the pelvis are submitted. Uterus measured 4.3 x 9.7 x 4.5 cm. There is a hypoechoic fluid collection emanating from the uterus adjacent to scar from section on the order of 1 x 0.5 x 0.8 cm, not associated with internal vascularity. Endometrium measured 0.7 cm. Right ovary measured 3.4 x 2 x 1.7 cm with normal low resistance vascularity. Left ovary measured 4 x 3.2 x 3 cm with normal low resistance vascularity. There is leak anechoic lesion of the left ovary about 3 x 2.5 x 2.2 cm. There is no significant free fluid. Impression: 1. There is a small nonspecific fluid collection adjacent to section scar about 1 cm. Endometrium is not significantly thickened. 2. There is simple left ovarian cyst. Course & Med Decision Making: Course & Med Decision Making Pertinent Labs and Imaging studies reviewed. (See chart for details) [Ordered labs, UA, urine , beta hCG, ultrasound of the pelvis Labs are within normal limits. Urine is positive. UA does not show UTI. Ultrasound shows single IUP of 10 weeks. Heart rate is 171. There is flow to the left ovary. Patient is given pain control in the ER. Patient to follow-up with COPIER OPERATOR IN 1-2 DAYS.. Discussed results and plan of care with patient. Patient is instructed to follow up with PCP in one to 2 days. Appropriate discharge instructions given to patient to return to the ED or to [facility] immediate medical evaluation. Patient is instructed to return to the ED if symptoms worsen or if any concerns.] Dragon Disclaimer: Dragon Disclaimer: This electronic medical record was generated, in whole or in part, using a voice recognition dictation system. Departure Departure Impression: Primary Impression: Pelvic pain affecting Additional Impression: Disposition: HOME, SELF-CARE Condition: STABLE Referrals: NO PCP (PCP) MORAIMA VITALE MD please call for appointment Patient Instructions: Abdominal Pain During Additional Instructions: Discussed results and plan of care with patient. Patient is instructed to follow up with PCP in one to 2 days. Appropriate discharge instructions given to patient to return to the ED or to seek immediate medical evaluation. Patient is instructed to return to the ED if symptoms worsen or if any concerns. Justicifation of Admission Dx: Justifications for Admission: Justification of Admission Dx: CATARINO Ohara DO Sep 18, 2019 20:27
[2019-09-18 20:29] LABS: BACTERIA,URINE FEW /HPF (0-FEW); SQUAMOUS EPITHELIAL CELL,UR FEW /LPF
[2019-09-18 20:59] LABS: BASO # 0.1 x10^3/uL (0.0-0.2); BASO % 1 % (0-3); EOS # 0.2 x10^3/uL (0.0-0.7); EOS % 1 % (0-3); HEMATOCRIT 37.1 % (36.0-47.0); HEMOGLOBIN 12.8 g/dL (12.0-15.5); LYMPH # 3.2 x10^3/uL (1.0-4.8); LYMPH % 27 % (24-48); MEAN CORPUSCULAR HEMOGLOBIN 30 pg (25-35); MEAN CORPUSCULAR HGB CONC 34 g/dL (31-37); MEAN CORPUSCULAR VOLUME 86 fL (79-100); MONO # 0.7 x10^3/uL (0.0-1.1); MONO % 6 % (0-9); NEUT # 7.9 x10^3/uL (1.8-7.7); NEUT % 66 % (31-73); PLATELET COUNT 264 x10^3/uL (140-400); RED BLOOD COUNT 4.33 x10^6/uL (3.50-5.40); RED CELL DISTRIBUTION WIDTH 13.4 % (11.5-14.5)
[2019-09-18 21:11] LABS: CALCIUM 8.8 mg/dL (8.5-10.1); CREATININE 0.7 mg/dL (0.6-1.0); GFR 91.8; POTASSIUM 3.7 mmol/L (3.5-5.1)
[2019-09-18 21:17] LABS: ALBUMIN 3.1 g/dL (3.4-5.0); ALBUMIN/GLOBULIN RATIO 0.7 (1.0-1.7); TOTAL BILIRUBIN 0.3 mg/dL (0.2-1.0); TOTAL PROTEIN 7.5 g/dL (6.4-8.2)
[2019-09-18 21:18] LABS: U PREG PATIENT POSITIVE (NEG)
[2019-09-18 21:20] LABS: PROTHROMBIN TIME PATIENT 12.6 SEC (11.7-14.0)
--- NOTE | 2019-09-18 22:41 | RAD ---
OB TRANSVAG History: Pelvic pain Comparison: None. Findings: Multiple transabdominal sonographic images of the pelvis are submitted. No abnormality is demonstrated in the area of pain in the left lower quadrant. Transvaginal ultrasound: Multiple transvaginal sonographic images of the pelvis are submitted. Uterus measured 13 x 7.6 cm. There is a single gestational sac with identifiable yolk sac and pole. Amniotic fluid volume is within normal limits. Gestational sac morphology is within normal limits. There is demonstrable cardiac activity 171 bpm. [place]-rump length measurement of 3.35 cm corresponds with 10 weeks 2 days. Adjusted ultrasound age is 10 weeks 2 days with estimated delivery date of 04/13/2020. LMP age 13 weeks 3 days with estimated delivery date of 03/22/2020. Left ovary measured 1.8 x 2.5 x 1.9 cm with normal low resistance vascularity. Right ovary could not be visualized. No free fluid is demonstrated. Impression: 1. There is a single viable intrauterine , adjusted ultrasound age 10 weeks 2 days with estimated delivery date 04/13/2020. There is no abnormality of the visualized left ovary, right ovary not seen on this exam. Electronically signed by: Herman Quick MD (09/18/2019 10:38 PM) [facility]
[2019-09-18] MEDS ORDERED: MORPHINE SULFATE 4 MG/ML VIAL. IV ONE (23:00)
[2019-09-18] MEDS ORDERED: ONDANSETRON PF 4 MG/2 ML VIAL. IVP ONE (23:00)
[2019-09-18 23:14] VITALS: BP 120/60
== END 2019-09-18 23:40 | disposition home or self-care (01) ==
LOC: ER 19:27
DX: O26.891 Other specified pregnancy related conditions, first trimester (principal); R10.2 Pelvic and perineal pain; Z90.89 Acquired absence of other organs; Z90.49 Acquired absence of other specified parts of digestive tract; Z3A.00 Weeks of gestation of pregnancy not specified
CPT/HCPCS: 36415; 76817; 80053; 81001; 81025; 83690; 84702; 85025; 85610; 87086; 96374; 96375; 99285; J2270; J2405

== ENCOUNTER 2019-09-29 00:06 | Emergency (ER) | payer SELFPAY ==
[~2019-09-29] VITALS: Ht 160 cm; Wt 104.5 kg
[2019-09-29] MEDS ORDERED: OXYC1TAB15 PO (00:43)
[2019-09-29] MEDS ORDERED: PENI500T PO (00:43)
--- NOTE | 2019-09-29 00:43 | PHYS DOC ---
Past Medical History Past Medical History: No Pertinent History, Other Additional Past Medical Histor: gestational diabetes Past Surgical History: Appendectomy, Cholecystectomy Smoking Status: Never Smoker Alcohol Use: None Drug Use: None General Adult EDM: Chief Complaint: DENTAL PROBLEM HPI: HPI: 44-year-old female presents with dental pain. Patient states the pain is sharp and has been gone for 3 days. Patient also notes swelling to the upper teeth. Patient had a dental procedure a year ago in the similar location but the pain started 3 days ago. Pain is worse with eating or palpation. Patient denies any fever or other complaints. Patient is 13 weeks Review of Systems: Review of Systems: Constitutional: Denies fever or chills. [] Eyes: Denies change in visual acuity. [] HENT: Complains of dental pain Respiratory: Denies cough or shortness of breath. [] Cardiovascular: Denies chest pain or edema. [] GI: Denies abdominal pain, nausea, vomiting, bloody stools or diarrhea. [] : Denies dysuria. [] Musculoskeletal: Denies back pain or joint pain. [] Integument: Denies rash. [] Neurologic: Denies headache, focal weakness or sensory changes. [] Endocrine: Denies polyuria or polydipsia. [] Lymphatic: Denies swollen glands. [] Psychiatric: Denies depression or anxiety. [] Heart Score: Risk Factors: Risk Factors: DM, Current or recent (<one month) smoker, HTN, HLP, family history of CAD, obesity. Risk Scores: Score 0 - 3: 2.5% MACE over next 6 weeks - Discharge Home Score 4 - 6: 20.3% MACE over next 6 weeks - Admit for Clinical Observation Score 7 - 10: 72.7% MACE over next 6 weeks - Early Invasive Strategies Allergies: Allergies: Allergies Coded Allergies Type Severity Reaction Last Updated Verified No Known Drug Allergies 02/09/14 No Physical Exam: PE: Constitutional: Well developed, well nourished, no acute distress, non-toxic appearance. HENT: No trismus, mild swelling to the central upper incisors. No drainable abscess. No evidence of Carrington's angina. Eyes: Conjunctiva clear, EOMI Neck: Normal range of motion, no tenderness, supple, no stridor. [] Cardiovascular: Regular rate/rhythm, peripheral pulse intact, CLASSIFIED ADVERTISING CLERK intact Lungs & Thorax: No respiratory distress Abdomen: No distension Skin: Diffuse: Intact, no rash Back: Full ROM Extremities: Normal inspection, no edema Neurologic: Alert and oriented X 3, normal motor function, , no focal deficits noted. Psychologic: Affect normal, judgement normal, mood normal. Current Patient Data: Vital Signs: Vital Signs Date Time Temp Pulse Resp B/P (MAP) Pulse Ox O2 Delivery O2 Flow Rate FiO2 09/29/19 00:13 98.2 68 20 129/61 (83) 97 Room Air 98.2 EKG: EKG: [] Radiology/Procedures: Radiology/Procedures: [] Course & Med Decision Making: Course & Med Decision Making Patient clinically stable. Patient was placed on antibiotics. Return pre cautions given. [] Dragon Disclaimer: Kathleen Disclaimer: This electronic medical record was generated, in whole or in part, using a voice recognition dictation system. Departure Departure Impression: Primary Impression: Pain, dental Disposition: HOME, SELF-CARE Condition: STABLE Referrals: NO PCP (PCP) CARD ORAL & MAXILLOFACIAL SURG 2-3 days Patient Instructions: Dental Pain Additional Instructions: EMERGENCY DEPARTMENT GENERAL DISCHARGE INSTRUCTIONS THANK YOU for coming to [facility] Emergency Department (ED) today and trusting us with your care. We trust that you had a positive experience in our Emergency Department. If you wish to speak to the department Management you can contact the academic department chair at . YOUR FOLLOW UP INSTRUCTIONS ARE FOLLOWS: Do you have a private doctor? If you do not have a private doctor, please ask for a resource list of physicians or clinics that may be able to assist you with follow up care. The Emergency Physician has interpreted your x-rays. The X-ray specialist will also review them. If there is a change in the findings you will be notified in 48 hours when at all possible. A lab test or lab culture may have been done, your results will be reviewed and you will be notified if you need a change in treatment. ADDITIONAL INSTRUCTIONS AND INFORMATION Your care today has been supervised by a physician who is specially trained in emergency care. Many problems require more than one evaluation for a complete diagnosis and treatment. We recommend that you schedule your follow up appointment as recommended to ensure complete treatment of your illness or injury. If you are unable to obtain follow up care and continue to have a problem, or if your condition worsens we recommend that you return to the ED. We are not able to safely determine your condition over the phone nor are we able to give sound medical advice over the phone. For these safety reasons, if you call for medical advice we will ask you to come to the ED for further evaluation If you have any questions regarding these discharge instructions please call the ED at . SAFETY INFORMATION In the interest of safety, wellness, and injury prevention; we encourage you to wear your seatbelt, if you smoke; quit smoking, and we encourage your family to use protective helmet for bicycling and other sporting events that present an increased risk for head injury. IF YOUR SYMPTOMS WORSEN OR NEW SYMPTOMS DEVELOP, OR YOU HAVE CONCERNS ABOUT YOUR CONDITION; OR IF YOUR CONDITION WORSENS WHILE YOU ARE WAITING FOR YOUR FOLLOW UP APPOINTMENT; EITHER CONTACT YOUR PRIMARY CARE DOCTOR, THE PHYSICIAN WHOSE NAME AND NUMBER YOU WERE GIVEN, OR RETURN TO THE ED IMMEDIATELY. Scripts Oxycodone/Apap 5-325 (PERCOCET 5-325 MG TABLET ) 1 Each Tablet 1-2 EACH PO PRN TID PRN for PAIN, #12 TAB pain Prov: MARGARITA ISAACS MD 09/29/19 Penicillin V Potassium (PENICILLIN V POTASSIUM) 500 Mg Tablet 1 TAB PO QID, #40 TAB Prov: MARGARITA ISAACS MD 09/29/19 Justicifation of Admission Dx: Justifications for Admission: Justification of Admission Dx: No MARGARITA ISAACS MD Sep 29, 2019 00:43
[2019-09-29] MEDS ORDERED: oxyCODONE/APAP 5/325 1 TAB TABLET ONE (00:51)
[2019-09-29 00:56] VITALS: BP 136/72
[2019-09-29] MEDS ORDERED: oxyCODONE/APAP 5/325 1 TAB TABLET PO ONE (01:00)
== END 2019-09-29 00:58 | disposition home or self-care (01) ==
LOC: ER 00:06
DX: O26.891 Other specified pregnancy related conditions, first trimester (principal); K08.89 Other specified disorders of teeth and supporting structures; R60.0 Localized edema; Z90.89 Acquired absence of other organs; Z90.49 Acquired absence of other specified parts of digestive tract; Z3A.13 13 weeks gestation of pregnancy
CPT/HCPCS: 99283

== ENCOUNTER 2020-03-19 20:22 | Observation (INO) | payer SELFPAY ==
[~2020-03-19 20:22] MED LIST changes: -CLIN150C14 PO; +CLIN150C15 PO; +OXYC1TAB15 PO; +PENI500T PO
[2020-03-19] MEDS ORDERED: IV RINGERS,LACTATED 1000ML 1,000 ML IV SCH (21:00)
[2020-03-19 21:14] LABS: BILIRUBIN,URINE SMALL (NEG); CLARITY,URINE CLEAR; COLOR,URINE AMBER; NITRITE,URINE NEGATIVE (NEG); PROTEIN,URINE 30 mg/dL (NEG-TRACE)
[2020-03-19 21:25] LABS: BACTERIA,URINE MODERATE /HPF (0-FEW); RBC,URINE 0 /HPF (0-2); WBC,URINE 20-40 /HPF (0-4)
== END 2020-03-19 22:15 | disposition home or self-care (01) ==
LOC: 3 SO LND 20:22
PROVIDERS: ADMIT Obstetrics & Gynecology; ATTEND Obstetrics & Gynecology
DX: O62.9 Abnormality of forces of labor, unspecified (principal); O24.410 Gestational diabetes mellitus in pregnancy, diet controlled; Z3A.38 38 weeks gestation of pregnancy; Z79.899 Other long term (current) drug therapy
CPT/HCPCS: 59025; 81001; 87086; G0378; G0379

== ENCOUNTER 2020-03-29 01:10 | Inpatient (IN) | payer MEDICAID ==
[~2020-03-29] VITALS: Ht 160 cm; Wt 125.6 kg
[2020-03-29] MEDS ORDERED: IV RINGERS,LACTATED 1000ML 1,000 ML IV SCH ×2 (02:00→04:00)
[2020-03-29 02:03] LABS: AMNIO PT NEGATIVE
[2020-03-29] MEDS ORDERED: IBUPROFEN 400 MG TABLET. PO PRN (04:00)
[2020-03-29] MEDS ORDERED: BUTORPHANOL 2 MG/ML VIAL. IVP PRN (04:00)
[2020-03-29] MEDS ORDERED: OXYTOCIN 30 UNIT/500 ML PREMIX 500 ML IV PRN ×3 (04:00→11:00)
[2020-03-29] MEDS ORDERED: 0.9 % SODIUM CHLORIDE 10 ML DISP.SYRIN. IV PRN ×2 (04:00→11:00)
[2020-03-29] MEDS ORDERED: LIDOCAINE 1% PF 30 ML VIAL. INJ PRN (04:00)
[2020-03-29] MEDS ORDERED: TERBUTALINE 1 MG/ML VIAL. SQ PRN (04:00)
[2020-03-29 04:13] LABS: BASO % 0 % (0-3); EOS # 0.1 x10^3/uL (0.0-0.7); EOS % 1 % (0-3); HEMATOCRIT 35.6 % (36.0-47.0); HEMOGLOBIN 12.3 g/dL (12.0-15.5); LYMPH # 4.2 x10^3/uL (1.0-4.8); LYMPH % 33 % (24-48); MEAN CORPUSCULAR HEMOGLOBIN 28 pg (25-35); MEAN CORPUSCULAR HGB CONC 35 g/dL (31-37); MEAN CORPUSCULAR VOLUME 81 fL (79-100); MONO # 0.7 x10^3/uL (0.0-1.1); MONO % 6 % (0-9); NEUT # 7.8 x10^3/uL (1.8-7.7); NEUT % 61 % (31-73); PLATELET COUNT 235 x10^3/uL (140-400); RED BLOOD COUNT 4.38 x10^6/uL (3.50-5.40); RED CELL DISTRIBUTION WIDTH 13.9 % (11.5-14.5); WHITE BLOOD COUNT 12.8 x10^3/uL (4.0-11.0)
[2020-03-29 04:22] VITALS: BP 172/79
[2020-03-29] MEDS ORDERED: LABETALOL 20 MG/4 ML DISP.SYRIN. IVP ONE ×2 (04:30→05:15)
[2020-03-29 04:55] LABS: BILIRUBIN,URINE NEGATIVE (NEG); CLARITY,URINE CLEAR; COLOR,URINE YELLOW; NITRITE,URINE POSITIVE (NEG); PROTEIN,URINE 30 mg/dL (NEG-TRACE)
[2020-03-29] MEDS ORDERED: PENICILLIN G K 5,000,000 UNIT in IV DEXTROSE 5% 100ML 100 ML IV ONE (05:00)
[2020-03-29] MEDS ORDERED: LABETALOL 20 MG/4 ML DISP.SYRIN. IVP PRN ×2 (05:00)
[2020-03-29 05:01] LABS: BACTERIA,URINE MANY /HPF (0-FEW)
[2020-03-29] MEDS: BUTORPHANOL 2 MG/ML VIAL. IVP PRN ×2 (05:01→09:41)
--- NOTE | 2020-03-29 05:04 | PDOC1 ---
BENZENE WASHER OPERATOR H&P Date of Admission: Date of Admission: Mar 29, 2020 at 01:10 History of Present Illness: EDC: 04/10/20 LMP: 06/06/19 44y @ 38.2 by 25wk u/s presents with ctxs. The pt also believed she may have had LOF and lost her mucous plug. The pt was found to be intact but her changed from 3 cm to 4 cm during the course of her stay. Since the pt arrived at 0130 she has had nothing but severe range BPs. To this point she has been given Labetalol IV twice. She denies any DOWELL, changes in vision or abd pain. PMH: Denies PSH: Kesha, Appy Meds: ASA, PNV All: NKDA OBHx: 5 x TSVD, 1 x 36 xSVD, 1 x 31wk twin SH: no tob, no EtOH FH: noncontributory Medications: Meds: Current Medications Medications (Trade) Dose Ordered Sig/Uriel Route PRN Reason Start Time Stop Time Status Last Admin Dose Admin Ringer's Solution 1,000 ml @ 125 mls/hr Q8H IV 03/29/20 04:00 03/29/20 04:31 Butorphanol Tartrate (Stadol) 2 mg PRN Q1HR PRN IVP Severe labor pain 03/29/20 04:00 03/29/20 05:01 Labetalol HCl (Normodyne Iv Push) 20 mg 1X ONCE IVP 03/29/20 04:30 03/29/20 04:31 DC 03/29/20 04:27 Labetalol HCl (Normodyne Iv Push) 20 mg 1X PRN IVP ELEVATED BP, SEE COMMENTS 03/29/20 05:00 03/29/20 04:54 DC 03/29/20 04:54 Allergies: Coded Allergies: No Known Drug Allergies (Unverified , 02/09/14) Physical Exam: Vital Signs: Vital Signs Date Time Temp Pulse Resp B/P (MAP) Pulse Ox O2 Delivery O2 Flow Rate FiO2 03/29/20 05:01 24 Room Air 03/29/20 04:54 77 188/84 PE: GENERAL: No apparent distress. Alert and oriented. HEENT: Head normocephalic, atraumatic. NECK: Supple LUNGS: Clear to auscultation. HEART: RRR, S1, S2 present, pulses intact ABDOMEN: Soft, positive bowel sounds. EXTREMITIES: No cyanosis or edema. NEUROLOGIC: Normal speech, normal tone PSYCHIATRIC: Normal affect, normal mood. SKIN: No ulceration. FHT: 150s +acels/a few variable decels/mLTV [place]: 2-4 min SVE: 4/50/-3 Labs: Laboratory Tests Test 03/29/20 01:45 03/29/20 01:50 03/29/20 04:00 Urine Collection Type Unknown Urine Color Yellow Urine Clarity Clear Urine pH 6.0 (<5.0-8.0) Urine Specific [place] 1.020 (1.000-1.030) Urine Protein 30 mg/dL (NEG-TRACE) Urine Glucose (UA) Negative mg/dL (NEG) Urine Ketones (Stick) Negative mg/dL (NEG) Urine Blood Moderate (NEG) Urine Nitrite Positive (NEG) Urine Bilirubin Negative (NEG) Urine Urobilinogen Dipstick 1.0 mg/dL (0.2 mg/dL) Urine Leukocyte Esterase Moderate (NEG) Urine RBC 3-5 /HPF (0-2) Urine WBC 11-20 /HPF (0-4) Urine Squamous Epithelial Cells Mod /LPF Urine Bacteria Many /HPF (0-FEW) Urine Mucus Slight /LPF Amniotic Fluid Swab Test Negative White Blood Count 12.8 x10^3/uL (4.0-11.0) H Red Blood Count 4.38 x10^6/uL (3.50-5.40) Hemoglobin 12.3 g/dL (12.0-15.5) Hematocrit 35.6 % (36.0-47.0) L Mean Corpuscular Volume 81 fL (79-100) Mean Corpuscular Hemoglobin 28 pg (25-35) Mean Corpuscular Hemoglobin Concent 35 g/dL (31-37) Red Cell Distribution Width 13.9 % (11.5-14.5) Platelet Count 235 x10^3/uL (140-400) Neutrophils (%) (Auto) 61 % (31-73) Lymphocytes (%) (Auto) 33 % (24-48) Monocytes (%) (Auto) 6 % (0-9) Eosinophils (%) (Auto) 1 % (0-3) Basophils (%) (Auto) 0 % (0-3) Neutrophils # (Auto) 7.8 x10^3/uL (1.8-7.7) H Lymphocytes # (Auto) 4.2 x10^3/uL (1.0-4.8) Monocytes # (Auto) 0.7 x10^3/uL (0.0-1.1) Eosinophils # (Auto) 0.1 x10^3/uL (0.0-0.7) Basophils # (Auto) 0.0 x10^3/uL (0.0-0.2) Glucose Level 95 mg/dL (70-99) Treponema pallidum Antibody Nonreactive (Nonreactive) Laboratory Tests 03/29/20 04:00 Laboratory Tests 03/29/20 04:00 Laboratory Tests 03/29/20 04:00 Assessment & Plan: 44y @ 38.2 by 25wk u/s 1.) Severe GHTN vs preeclampsia with severe features s/p Labetalol 20mg IV x 2, no s/s of preeclampsia, PIH labs sent 2.) Active labor AROMed for augmentation 3.) AMA NIPT low risk 4.) GDM vs pregestational DM GTT 244, has never recorded FSBS 5.) TDAP given 12/31/19 6.) Flu given 12/31/19 7.) DPS consent signed 02/25/20 8.) Fetus cat I FHT 9.) GBS pending no risk factors RENEE OROZCO MD Mar 29, 2020 05:04
[2020-03-29 05:05] LABS: ALBUMIN 2.5 g/dL (3.4-5.0); ALBUMIN/GLOBULIN RATIO 0.6 (1.0-1.7); CALCIUM 8.6 mg/dL (8.5-10.1); CREATININE 0.7 mg/dL (0.6-1.0); GFR 91.8; POTASSIUM 4.2 mmol/L (3.5-5.1); TOTAL BILIRUBIN 0.6 mg/dL (0.2-1.0); TOTAL PROTEIN 6.9 g/dL (6.4-8.2); URIC ACID 5.9 mg/dL (2.6-6.0)
[2020-03-29 05:20] LABS: CREATININE,RANDOM URINE 96.9 mg/dL (Not Establ.)
[2020-03-29] MEDS ORDERED: hydrALAZINE 20 MG/ML VIAL. IVP ONE (05:30)
--- NOTE | 2020-03-29 07:34 | PDOC ---
LINE ASSIGNER PROGRESS NOTE Date of Service: DATE: 03/29/20 TIME: 07:33 Subjective: Pt denies DOWELL, changes in vision or abd pain. Considering epidural Objective: Vital Signs: Vital Signs Date Time Temp Pulse Resp B/P (MAP) Pulse Ox O2 Delivery O2 Flow Rate FiO2 03/29/20 04:22 65 22 172/79 (110) Room Air Vital Signs Date Time Temp Pulse Resp B/P (MAP) Pulse Ox O2 Delivery O2 Flow Rate FiO2 03/29/20 05:15 75 188/86 03/29/20 05:01 24 Room Air Labs: Laboratory Tests Test 03/29/20 01:45 03/29/20 01:50 03/29/20 04:00 Urine Collection Type Unknown Urine Color Yellow Urine Clarity Clear Urine pH 6.0 (<5.0-8.0) Urine Specific [place] 1.020 (1.000-1.030) Urine Protein 30 mg/dL (NEG-TRACE) Urine Glucose (UA) Negative mg/dL (NEG) Urine Ketones (Stick) Negative mg/dL (NEG) Urine Blood Moderate (NEG) Urine Nitrite Positive (NEG) Urine Bilirubin Negative (NEG) Urine Urobilinogen Dipstick 1.0 mg/dL (0.2 mg/dL) Urine Leukocyte Esterase Moderate (NEG) Urine RBC 3-5 /HPF (0-2) Urine WBC 11-20 /HPF (0-4) Urine Squamous Epithelial Cells Mod /LPF Urine Bacteria Many /HPF (0-FEW) Urine Mucus Slight /LPF Urine Random Creatinine 96.9 mg/dL (Not Establ.) Urine Random Total Protein 43.0 mg/dL (Not Establ.) Urine Protein/Creatinine Ratio 444 mg/g (0-200) H Amniotic Fluid Swab Test Negative White Blood Count 12.8 x10^3/uL (4.0-11.0) H Red Blood Count 4.38 x10^6/uL (3.50-5.40) Hemoglobin 12.3 g/dL (12.0-15.5) Hematocrit 35.6 % (36.0-47.0) L Mean Corpuscular Volume 81 fL (79-100) Mean Corpuscular Hemoglobin 28 pg (25-35) Mean Corpuscular Hemoglobin Concent 35 g/dL (31-37) Red Cell Distribution Width 13.9 % (11.5-14.5) Platelet Count 235 x10^3/uL (140-400) Neutrophils (%) (Auto) 61 % (31-73) Lymphocytes (%) (Auto) 33 % (24-48) Monocytes (%) (Auto) 6 % (0-9) Eosinophils (%) (Auto) 1 % (0-3) Basophils (%) (Auto) 0 % (0-3) Neutrophils # (Auto) 7.8 x10^3/uL (1.8-7.7) H Lymphocytes # (Auto) 4.2 x10^3/uL (1.0-4.8) Monocytes # (Auto) 0.7 x10^3/uL (0.0-1.1) Eosinophils # (Auto) 0.1 x10^3/uL (0.0-0.7) Basophils # (Auto) 0.0 x10^3/uL (0.0-0.2) Sodium Level 137 mmol/L (136-145) Potassium Level 4.2 mmol/L (3.5-5.1) Chloride Level 103 mmol/L (98-107) Carbon Dioxide Level 19 mmol/L (21-32) L Anion Gap 15 (6-14) H Blood Urea Nitrogen 18 mg/dL (7-20) Creatinine 0.7 mg/dL (0.6-1.0) Estimated GFR (Cockcroft-Gault) 91.8 BUN/Creatinine Ratio 26 (6-20) H Glucose Level 94 mg/dL (70-99) Uric Acid 5.9 mg/dL (2.6-6.0) Calcium Level 8.6 mg/dL (8.5-10.1) Total Bilirubin 0.6 mg/dL (0.2-1.0) Aspartate Amino Transferase (AST) 17 U/L (15-37) Alanine Aminotransferase (ALT) 19 U/L (14-59) Alkaline Phosphatase 115 U/L (46-116) Lactate Dehydrogenase 154 U/L (81-234) Total Protein 6.9 g/dL (6.4-8.2) Albumin 2.5 g/dL (3.4-5.0) L Albumin/Globulin Ratio 0.6 (1.0-1.7) L Treponema pallidum Antibody Nonreactive (Nonreactive) SARS-CoV-2 Antigen (Rapid) Negative (NEGATIVE) Laboratory Tests 03/29/20 04:00 Laboratory Tests 03/29/20 04:00 Laboratory Tests 03/29/20 04:00 Physical Exam: GENERAL: No apparent distress. Alert and oriented. HEENT: Head normocephalic, atraumatic. NECK: Supple LUNGS: Clear to auscultation. HEART: RRR, S1, S2 present, pulses intact ABDOMEN: Soft, positive bowel sounds. EXTREMITIES: No cyanosis or edema. NEUROLOGIC: Normal speech, normal tone PSYCHIATRIC: Normal affect, normal mood. SKIN: No ulceration. FHT: 150s +acels/occ variable decels/mLTV [place]: difficult to tell due to body habitus SVE: /-3 Assessment & Plan: 44y @ 38.2 by 25wk u/s 1.) Preeclampsia with severe features s/p Labetalol IV x 3(20, 20, 10), BPs now nml, no s/s of preeclampsia, PIH labs wnl, urine Pr/Cr 0.44 2.) Active labor AROMed for augmentation, has arrested at 6cm so will start Pit, if minimal change with Pit may consider IUPC 3.) AMA NIPT low risk 4.) GDM vs pregestational DM GTT 244, has never recorded FSBS 5.) TDAP given 12/31/19 6.) Flu given 12/31/19 7.) DPS consent signed 02/25/20 8.) Fetus cat I FHT 9.) GBS pending no risk factors RENEE OROZCO MD Mar 29, 2020 07:34
[2020-03-29] MEDS ORDERED: PENICILLIN G K 2,500,000 UNIT in IV DEXTROSE 5% 50 ML IV SCH (09:00)
--- NOTE | 2020-03-29 10:51 | PDOC ---
VAGINAL DELIVERY DATE DATE: 03/29/20 TIME: 10:47 TIME Patient delivered a viable female over intact perineum at 1028. Wt 11 lb 6.5 oz. Apgars 8/8. Placenta delivered spontaneously, intact with 3VC. No lacerations noted, although it appears that the pt may have had a poorly repaired past 3rd and 4th degree. Good hemostasis noted. 20 U of Pit given with IVF. EBL 300cc. WEIGHT Weight [ ] RENEE OROZCO MD Mar 29, 2020 10:51
[2020-03-29] MEDS ORDERED: SIMETHICONE 80 MG TAB.CHEW PO PRN (11:00)
[2020-03-29] MEDS ORDERED: DOCUSATE SODIUM 100 MG CAPSULE. PO PRN (11:00)
[2020-03-29] MEDS ORDERED: HYDROCORTISONE 1% TOPICAL OINTMENT 30GM TUBE. TP PRN (11:00)
[2020-03-29] MEDS ORDERED: MAGNESIUM HYDROXIDE 2,400 MG/30 ML ORAL.SUSP. PO PRN (11:00)
[2020-03-29] MEDS ORDERED: MMR per PROTOCOL. MC PRN (11:00)
[2020-03-29] MEDS ORDERED: PHENYLEPH/MINERAL OIL/PETROLAT RECTAL OINTMENT TUBE. RC PRN (11:00)
[2020-03-29] MEDS ORDERED: ZOLPIDEM 5 MG TABLET. PO PRN (11:00)
[2020-03-29] MEDS ORDERED: diphenhydrAMINE HCL 25 MG CAPSULE PO PRN (11:00)
[2020-03-29] MEDS ORDERED: BENZOCAINE 20% TOPICAL AEROSOL SPRAY 57GM CAN. TP PRN (11:00)
[2020-03-29] MEDS ORDERED: TDaP (Adacel) per PROTOCOL. MC PRN (11:00)
[2020-03-29] MEDS ORDERED: MAG HYDROX/ALUMINUM HYD/SIMETH 30 ML ORAL.SUSP PO PRN (11:00)
[2020-03-29] MEDS: IBUPROFEN 400 MG TABLET. PO PRN (12:55)
[2020-03-29] MEDS ORDERED: miSOPROStol 200 MCG TABLET. PR ONE (13:45)
[2020-03-29 18:45] VITALS: BP 131/53
[2020-03-29] MEDS: oxyCODONE/APAP 5/325 1 TAB TABLET PO PRN (19:52)
[2020-03-29 20:09] VITALS: BP 147/52
[2020-03-29] MEDS: ACETAMINOPHEN 325 MG TABLET. PO PRN (22:31)
[2020-03-29 23:24] VITALS: BP 116/58
[2020-03-30] MEDS: IBUPROFEN 400 MG TABLET. PO PRN (03:54)
[2020-03-30 04:09] VITALS: BP 151/71
[2020-03-30] MEDS ORDERED: FERROUS SULFATE 325 MG TABLET. PO SCH (08:00)
[2020-03-30] MEDS ORDERED: PRENATAL MULTIVITAMIN TABLET. PO SCH (09:00)
[2020-03-30 09:50] VITALS: BP 124/59
[2020-03-30] MEDS: oxyCODONE/APAP 5/325 1 TAB TABLET PO PRN (11:03)
[2020-03-30 11:16] LABS: HEMATOCRIT 31.6 % (36.0-47.0); HEMOGLOBIN 10.5 g/dL (12.0-15.5); RED BLOOD COUNT 3.86 x10^6/uL (3.50-5.40); RED CELL DISTRIBUTION WIDTH 13.8 % (11.5-14.5); WHITE BLOOD COUNT 13.7 x10^3/uL (4.0-11.0)
--- NOTE | 2020-03-30 12:42 | PDOC ---
COMMERCIAL LINES ACCOUNT MANAGER PROGRESS NOTE Date of Service: DATE: 03/30/20 TIME: 12:36 Subjective: Pt with good painn control. Mitzy PO. Voiding. Minimal lochia. Denies DOWELL, changes in vision, or abd pain. Objective: Vital Signs: Vital Signs Date Time Temp Pulse Resp B/P (MAP) Pulse Ox O2 Delivery O2 Flow Rate FiO2 03/29/20 09:41 22 Room Air 03/29/20 18:45 99.0 71 131/53 (79) 99.0 03/29/20 20:09 98 Vital Signs Date Time Temp Pulse Resp B/P (MAP) Pulse Ox O2 Delivery O2 Flow Rate FiO2 03/30/20 11:03 Room Air 03/30/20 09:50 97.9 64 18 124/59 (80) 99 97.9 Labs: Laboratory Tests Test 03/30/20 10:00 White Blood Count 13.7 x10^3/uL (4.0-11.0) H Red Blood Count 3.86 x10^6/uL (3.50-5.40) Hemoglobin 10.5 g/dL (12.0-15.5) L Hematocrit 31.6 % (36.0-47.0) L Mean Corpuscular Volume 82 fL (79-100) Mean Corpuscular Hemoglobin 27 pg (25-35) Mean Corpuscular Hemoglobin Concent 33 g/dL (31-37) Red Cell Distribution Width 13.8 % (11.5-14.5) Platelet Count 193 x10^3/uL (140-400) Laboratory Tests 03/30/20 10:00 Laboratory Tests 03/30/20 10:00 Physical Exam: GENERAL: No apparent distress. Alert and oriented. HEENT: Head normocephalic, atraumatic. NECK: Supple LUNGS: Clear to auscultation. HEART: RRR, S1, S2 present, pulses intact ABDOMEN: Soft, positive bowel sounds. EXTREMITIES: No cyanosis or edema. NEUROLOGIC: Normal speech, normal tone PSYCHIATRIC: Normal affect, normal mood. SKIN: No ulceration. FFNT below umb no C/C/E Assessment & Plan: A/P 44y PPD #1 s/p 1.) PP - doing well 2.) Preeclampsia with severe features s/p Labetalol IV x 3(20, 20, 10) during labor, not mag'ed since dx'ed established until delivery imminent, BPs nml to mild since delivery, no s/s of preeclampsia, PIH labs wnl, urine Pr/Cr 0.44 3.) GDM vs pregestational DM GTT 244, did not record FSBS during , Fasting this am 162 so most likely pregestational, will refer to PCP at PP visit 4.) TDAP given 12/31/19 5.) Flu given 12/31/19 6.) DPS consent signed 02/25/20, will not perform PPBTL due to body habitus, will offer to integral tubal (Lap_ 7.) Hgb 12.3 -> 10.5 8.) Cont PP care RENEE OROZCO MD Mar 30, 2020 12:42
[2020-03-30 14:37] VITALS: BP 136/69
[2020-03-30 18:05] VITALS: BP 140/70
[2020-03-30] MEDS: ACETAMINOPHEN 325 MG TABLET. PO PRN (19:29)
[2020-03-30 22:45] VITALS: BP 148/74
[2020-03-31] MEDS: oxyCODONE/APAP 5/325 1 TAB TABLET PO PRN (06:06)
[2020-03-31 06:20] VITALS: BP 150/81
--- NOTE | 2020-03-31 09:29 | NUR ---
RN reviews BP of 157/63 with , states no new orders at this time.
[2020-03-31 09:31] VITALS: BP 157/63
[2020-03-31] MEDS ORDERED: IBUP-1060 PO (10:49)
[2020-03-31] MEDS ORDERED: DOCU-109 PO (10:49)
--- NOTE | 2020-03-31 11:20 | PDOC ---
BAK[employer] SUPERVISOR PROGRESS NOTE Date of Service: DATE: 03/31/20 TIME: 11:19 Subjective: Pt with good pain control. Mitzy PO. Voiding. Minimal lochia. Denies DOWELL, changes in vision or abd pain. Objective: Vital Signs: Vital Signs Date Time Temp Pulse Resp B/P (MAP) Pulse Ox O2 Delivery O2 Flow Rate FiO2 03/30/20 09:50 97.9 64 18 124/59 (80) 99 Room Air 97.9 Vital Signs Date Time Temp Pulse Resp B/P (MAP) Pulse Ox O2 Delivery O2 Flow Rate FiO2 03/31/20 09:31 98.1 16 157/63 (94) 98 Room Air 98.1 03/31/20 06:20 55 Physical Exam: GENERAL: No apparent distress. Alert and oriented. HEENT: Head normocephalic, atraumatic. NECK: Supple LUNGS: Clear to auscultation. HEART: RRR, S1, S2 present, pulses intact ABDOMEN: Soft, positive bowel sounds. EXTREMITIES: No cyanosis or edema. NEUROLOGIC: Normal speech, normal tone PSYCHIATRIC: Normal affect, normal mood. SKIN: No ulceration. FFNT below umb No C/C/E Assessment & Plan: A/P 44y PPD #2 s/p 1.) PP - doing well 2.) Preeclampsia with severe features s/p Labetalol IV x 3(20, 20, 10) during labor, not mag'ed since dx'ed established until delivery imminent, BPs nml to mild since delivery, no s/s of preeclampsia, PIH labs wnl, urine Pr/Cr 0.44 3.) GDM vs pregestational DM GTT 244, did not record FSBS during , Fasting elevated PP, so most likely pregestational, will refer to PCP at PP visit 4.) TDAP given 12/31/19 5.) Flu given 12/31/19 6.) DPS consent signed 02/25/20, PPBTL not perform due to body habitus, will offer to integral tubal (Lap_ 7.) Hgb 12.3 -> 10.5 8.) D/c home RENEE OROZCO MD Mar 31, 2020 11:20
--- NOTE | 2020-03-31 11:52 | DS ---
DATE OF DISCHARGE: 03/31/2020 ADMISSION DIAGNOSES: 1. Intrauterine at 38 weeks and 2 days by 25-week ultrasound. 2. Sporadic care. 3. Severe gestational hypertension versus preeclampsia with severe features. 4. Active labor. 5. Advanced maternal age. 6. Gestational diabetes versus pregestational diabetes. 7. Desires permanent sterilization. 8. GBS pending. DISCHARGE DIAGNOSES: 1. Intrauterine at 38 weeks and 2 days by 25-week ultrasound. 2. Sporadic care. 3. Preeclampsia with severe features. 4. Active labor. 5. Advanced maternal age. 6. Likely pregestational diabetes. 7. Desires permanent sterilization. 8. GBS negative. PROCEDURE: Spontaneous vaginal delivery. BRIEF HOSPITAL COURSE: The patient is a 44-year-old 9, para 5-2-1-8, who presented to Labor and Delivery at 38 weeks and 2 days by 25-week ultrasound with contractions. The patient was also thought that she may have had leakage of fluid or loss of mucus plug. The patient was found to be intact, but on admission, her cervical dilation found to be 3 cm. After the course of an hour, her dilation progressed to 4 cm. Of note, on the patient's arrival, the patient had severe range blood pressures, which persisted. The patient was treated with labetalol 20 mg twice without resolution. The patient was about to get a 40 of labetalol, but after the first 10 mg were injected, the patient began to feel lightheaded, so was stopped. After that point, the patient's blood pressures remained normal to mild throughout the course of her labor. [facility] labs were sent, all of them returned normal with the exception of a urine protein creatinine ratio was 0.44. By the time the patient was ruled in for preeclampsia with severe features, she was imminently going to be delivered, so mag was never started. T he patient also remained without any signs or symptoms of preeclampsia throughout the hospital course. The patient eventually required augmentation with artificial rupture of membranes and eventually Pitocin. The patient delivered by vaginal delivery, see delivery note for full detail. After delivery, the patient had some normal to mild range blood pressures. Of note, the patient was seen in the office a total of 4 times. She had a glucose tolerance test of 244. She never underwent 3-hour GTT, but likely with a value of 244, she would have ruled in for diabetes either gestational or pregestational. Since the patient had sporadic care, the patient never recorded her fingerstick blood sugars. The patient desired permanent sterilization, but due to her body habitus, it was felt that a BTL may be difficult to perform and a better procedure for her would be a laparoscopic tubal ligation performed after 6 weeks. This was explained to the patient who was okay with this decision. Also of note, the patient's hemoglobin on admission was 12.3 and after delivery was found to be 10.5. Since the patient was meeting all discharge criteria by day #2, the patient was discharged to boarder status since the baby was still admitted. Also of note, the patient did say on the night of day #1, she was started to develop headache, it went away with the Percocet, but otherwise the patient had no persisting headaches during the course of her labor. DISCHARGE INSTRUCTIONS: The patient was told not to lift anything greater than 20 pounds, have pelvic rest for 6 weeks. CALL IF: The patient was to call if she had fevers, chills, nausea, vomiting, abdominal pain, headache, changes in vision or any additional questions or concerns. FOLLOWUP APPOINTMENT: The patient is to follow up a week from for blood pressure check. DISCHARGE MEDICATIONS: The patient was given a prescription for Motrin 800 mg 30 pills and Colace 100 mg 30 pills. RENEE OROZCO MD DR: MAXX/savannah JOB#: [id number] / [id number] ROSEMARY
[2020-03-31 14:18] VITALS: BP 160/83
== END 2020-03-31 14:00 | disposition home or self-care (01) | DRG 807 ==
LOC: 3 SO LND 01:10 → OBSVTOIN 01:10 → 3 NORTH 15:03
PROVIDERS: ADMIT Obstetrics & Gynecology; ATTEND Obstetrics & Gynecology
PROC: 10E0XZZ Delivery of Products of Conception, External Approach (ICD-10-PCS; principal; 2020-03-29)
DX: O24.32 Unspecified pre-existing diabetes mellitus in childbirth (principal); Z37.0 Single live birth; O14.14 Severe pre-eclampsia complicating childbirth; Z3A.38 38 weeks gestation of pregnancy; Z20.822 Contact with and (suspected) exposure to COVID-19
CPT/HCPCS: 36415; 80053; 81001; 82570; 82947; 82962; 83615; 84112; 84156; 84550; 85025; 85027; 86592; 86850; 86900; 86901; 87077; 87086; 87186; 87426; 88307; J0595; J2590; J3490; J7120; U0003; G0378